=== PATIENT | female | born 1970 | race Hispanic/Latino ===

== ENCOUNTER 2017-12-08 15:24 | Emergency (ER) | payer OTHER ==
--- NOTE | 2017-12-08 16:35 | RAD ---
Procedure: XR ABDOMEN SUPINE AND ERECT WITH CHEST (ABD ACUTE SERIES) Exam Date: 12/08/2017 Ordering Provider: Chase Wagoner Clinical Indication: epigastric pain, nv constipation Comparison: 05/31/2015 Findings: Upright chest x-ray: Cardiomediastinal silhouette is within normal limits. Pulmonary vasculature is unremarkable. There is no consolidation or effusion. No pneumothorax. Flat and upright abdomen: Nonobstructive bowel gas pattern. There is no pneumoperitoneum. There are no suspicious urinary tract calcifications. No acute osseous abnormalities. Impression: 1. No acute findings. Electronically signed by: Carlton Soliz MD 12/08/2017 4:33 PM CDT
[2017-12-08] MEDS ORDERED: SUCRALFATE 1 GM/10 ML 1 GM UD PO ONE (17:07)
[2017-12-08] MEDS ORDERED: PANTOPRAZOLE SODIUM TAB 40 MG PO ONE (17:07)
[2017-12-08] MEDS ORDERED: ALUM & MAG HYDROX-SIMETHICONE 30 ML, LIDOCAINE VISCOUS 2% 15 ML PO ONE ×2 (17:07)
[2017-12-08] MEDS ORDERED: ONDANSETRON ODT 8 MG TAB SL ONE (17:08)
[2017-12-08] MEDS ORDERED: ALUM & MAG HYDROX-SIMETHICONE 30 ML UD ONE (17:13)
[2017-12-08] MEDS ORDERED: LIDOCAINE HCL 2% (MOUTH-THROAT) 15 ML UD ONE (17:13)
--- NOTE | 2017-12-08 18:17 | ED.PDOC ---
History of Present Illness - General Chief Complaint: GI Problem Stated Complaint: epigastric pain Time Seen by Provider: 12/08/17 15:26 Source: patient Exam Limitations: no limitations - History of Present Illness Initial Comments: The patient is a 47-year-old female presenting to the emergency room secondary to nausea and vomiting since this morning. She has had some epigastric discomfort. No real right upper quadrant pain. She has had some constipation issues. No fever. No blood in the vomitus. No bile in the vomitusvomitus. Timing/Duration: 24 hours Severity: moderate Improving Factors: nothing Worsening Factors: nothing Associated Symptoms: loss of appetite, nausea/vomiting Allergies/Adverse Reactions: Allergies NO KNOWN ALLERGY Allergy (Unverified 06/11/12 22:39) Home Medications: Ambulatory Orders Metronidazole 250 mg PO TID #21 tab 05/31/15 Famotidine 20 mg PO DAILY #90 tab 12/08/17 Ondansetron [Zofran Odt] 4 mg PO Q4H PRN #10 tab 12/08/17 Sucralfate Tab [Carafate Tab] 1 gm PO QID #120 tab 12/08/17 Review of Systems - Review of Systems Constitutional: States: no symptoms reported EENTM: States: no symptoms reported Respiratory: States: no symptoms reported Cardiology: States: no symptoms reported Gastrointestinal/Abdominal: States: abdominal pain, constipation, nausea, vomiting Genitourinary: States: no symptoms reported Musculoskeletal: States: no symptoms reported Skin: States: no symptoms reported Neurological: States: no symptoms reported Endocrine: States: no symptoms reported All other Systems: No Change from Baseline Past Medical History (General) - Patient Medical History Hx Seizures: No Hx Stroke: No Hx Dementia: No Hx Asthma: No Hx of COPD: No Hx Cardiac Disorders: No Hx Congestive Heart Failure: No Hx Pacemaker: No Hx Hypertension: No Hx Thyroid Disease: No Hx Diabetes: No Hx Gastroesophageal Reflux: No Hx Renal Disease: No Hx Cancer: No Hx of HIV: No Hx Hepatitis C: No Hx MRSA: No - Vaccination History Hx Tetanus, Diphtheria Vaccination: Yes Hx Influenza Vaccination: No Hx Pneumococcal Vaccination: No - Social History Hx Tobacco Use: No Hx Chewing Tobacco Use: No Hx Alcohol Use: No Hx Substance Use: No Hx Substance Use Treatment: No Hx Depression: No Hx Physical Abuse: No Hx Emotional Abuse: No Hx Suspected Abuse: No - Female History Hx Last Menstrual Period: 05/20/15 Patient : No Family Medical History - Family History Mother Family History: Unknown Living Status: Still Living Physical Exam - Physical Exam General Appearance: Alert, Comfortable, No apparent distress Eye Exam: bilateral normal Ears, Nose, Throat: hearing grossly normal, normal pharynx Neck: full range of motion, supple Respiratory: lungs clear, normal breath sounds, no respiratory distress, no accessory muscle use Cardiovascular/Chest: normal peripheral pulses, regular rate, rhythm, no edema Peripheral Pulses: radial,right: 2+, radial,left: 2+, dorsalis pedis,right: 2+, dorsalis pedis,left: 2+ Gastrointestinal/Abdominal: soft, other - mild epigastric discomfort palpation. No rebound or peritoneal signs. No obvious palpable masses. Rectal Exam: deferred Back Exam: normal inspection, no CVA tenderness Extremity: normal range of motion, non-tender, normal inspection, no pedal edema , normal capillary refill Neurologic: eye care professional II-XII nml as tested, alert, normal mood/affect, oriented x 3 Skin Exam: normal color Comments: Vital Signs - 8 hr 12/08/17 15:30 Temperature 97.6 F Pulse Rate [ 58 L right brachial] Respiratory 18 Rate Blood Pressure 152/93 [right brachial ] O2 Sat by Pulse 99 Oximetry Progress - Progress Progress: 12/08/17 18:17 the patient a 47-year-old female presenting secondary some nausea and vomiting likely due to acute gastritis. The patient will be written for Zofran , Pepcid and Carafate. She needs to maintain a bland diet. She can also take milk of magnesia once daily for the next 3 days for any constipation. She needs to keep follow-up with her primary care doctor. She needs to keep well hydrated. ER warnings are given for any worsening. - Results/Orders Results/Orders: acute abdominal series shows no acute pathology. No evidence of any obstruction. No free air under the diaphragm. Laboratory Tests 12/08/17 12/08/17 12/08/17 16:31 16:31 16:31 WBC 7.6 RBC 4.65 Hgb 12.2 Hct 37.3 MCV 80.3 L MCH 26.2 L MCHC 32.6 L RDW 17.0 H Plt Count 267 MPV 9.6 Absolute Neuts (auto) 4.70 Absolute Lymphs (auto) 2.20 Absolute Monos (auto) 0.40 Absolute Eos (auto) 0.20 Absolute Basos (auto) 0.10 Neutrophils % 61.5 Lymphocytes % 29.3 Monocytes % 5.3 Eosinophils % 3.2 Basophils % 0.7 Sodium 139 Potassium 3.4 L Chloride 105 Carbon Dioxide 27 Anion Gap 10.4 L BUN 16 Creatinine 0.58 L BUN/Creatinine Ratio 27.6 H Random Glucose 105 Serum Osmolality 279.1 Calcium 9.2 Total Bilirubin 0.4 AST 19 ALT 19 Alkaline Phosphatase 81 Serum Total Protein 7.5 Albumin 4.0 Globulin 3.5 Albumin/Globulin Ratio 1.1 Amylase 39 Lipase 26 Serum HCG, Qual Negative Urine Color Urine Appearance Urine pH Ur Specific [place] Urine Protein Urine Glucose (UA) Urine Ketones Urine Blood Urine Nitrite Urine Bilirubin Urine Urobilinogen Ur Leukocyte Esterase Urine RBC Urine WBC Ur Epithelial Cells Urine Bacteria 12/08/17 Unknown WBC RBC Hgb Hct MCV MCH MCHC RDW Plt Count MPV Absolute Neuts (auto) Absolute Lymphs (auto) Absolute Monos (auto) Absolute Eos (auto) Absolute Basos (auto) Neutrophils % Lymphocytes % Monocytes % Eosinophils % Basophils % Sodium Potassium Chloride Carbon Dioxide Anion Gap BUN Creatinine BUN/Creatinine Ratio Random Glucose Serum Osmolality Calcium Total Bilirubin AST ALT Alkaline Phosphatase Serum Total Protein Albumin Globulin Albumin/Globulin Ratio Amylase Lipase Serum HCG, Qual Urine Color Yellow Urine Appearance Clear Urine pH 7.5 Ur Specific [place] 1.015 Urine Protein Negative Urine Glucose (UA) Negative Urine Ketones Negative Urine Blood Negative Urine Nitrite Negative Urine Bilirubin Negative Urine Urobilinogen 0.2 Ur Leukocyte Esterase Negative Urine RBC 0 Urine WBC 0 Ur Epithelial Cells 1-3 Urine Bacteria 0 Departure - Departure Clinical Impression: Gastritis, acute Qualifiers: Gastritis type: unspecified gastritis Gastritis bleeding: without bleeding Qualified Code(s): K29.00 - Acute gastritis without bleeding Disposition: Discharge to Home or Self Care Condition: Fair Departure Forms: ED Discharge - Pt. Copy, Patient Portal Self Enrollment Instructions: DI for Gastritis Diet: bland diet Activity: increase activity as tolerated Referrals: Shavonne Webb MD [Primary Care Provider] - 1-2 Weeks Prescriptions: Famotidine 20 mg PO DAILY #90 tab Ondansetron [Zofran Odt] 4 mg PO Q4H PRN #10 tab PRN Reason: Vomiting Sucralfate Tab [Carafate Tab] 1 gm PO QID #120 tab Home Medications: Ambulatory Orders Metronidazole 250 mg PO TID #21 tab 05/31/15 Famotidine 20 mg PO DAILY #90 tab 12/08/17 Ondansetron [Zofran Odt] 4 mg PO Q4H PRN #10 tab 12/08/17 Sucralfate Tab [Carafate Tab] 1 gm PO QID #120 tab 12/08/17 Additional Instructions: the patient a 47-year-old female presenting secondary some nausea and vomiting likely due to acute gastritis. The patient will be written for Zofran , Pepcid and Carafate. She needs to maintain a bland diet. She can also take milk of magnesia once daily for the next 3 days for any constipation. She needs to keep follow-up with her primary care doctor. She needs to keep well hydrated. ER warnings are given for any worsening. Print Language: [place]uran
[2017-12-08 18:35] VITALS: BP 147/93; TEMP 98.8; O2SAT 96
== END 2017-12-08 18:34 | disposition home or self-care (01) ==
LOC: ER 15:24
DX: K29.00 Acute gastritis without bleeding (principal)

== ENCOUNTER 2018-04-28 17:46 | Emergency (ER) | payer OTHER ==
[2018-04-28] MEDS ORDERED: SODIUM CHLORIDE 0.9% (FLUSH) 10 ML SYG IV PRN (18:55)
--- NOTE | 2018-04-28 19:25 | RAD ---
EXAM DESCRIPTION: Chest,1 View CLINICAL HISTORY:47 years Female, DIZZINESS/MORENO Comparison: December 14, 2012 FINDINGS: No focal lung consolidation. No pleural effusion. No pneumothorax. Cardiac and mediastinal silhouette is unremarkable. No acute osseous abnormality. Soft tissues are unremarkable. IMPRESSION: No acute findings. No focal lung consolidation. Electronically signed by: Aniceto James MD 04/28/2018 7:22 PM MESSAGE CLERK
[2018-04-28] MEDS ORDERED: METOCLOPRAMIDE HCL INJ 10 MG/2 ML VIAL IV ONE (19:57)
[2018-04-28] MEDS ORDERED: KETOROLAC TROMETHAMINE INJ 30 MG/ML VIAL IV ONE (19:57)
--- NOTE | 2018-04-28 20:21 | ED.PDOC ---
History of Present Illness - General Chief Complaint: Neuro Symptoms/Deficits Stated Complaint: DIZZY, H/A STATES FACE FEELS NUMB Time Seen by Provider: 04/28/18 19:56 Source: patient Exam Limitations: no limitations - History of Present Illness Initial Comments: PT C/O MORENO X 3 DAYS. INITIALLY MILD NOW GLOBAL, WORSE AND ASSOCIATED WITH VOMITING. CAME TO ED FOR EVALUATION. Improving Factors: nothing Worsening Factors: nothing Associated Symptoms: nausea/vomiting Allergies/Adverse Reactions: Allergies NO KNOWN ALLERGY Allergy (Unverified 06/11/12 22:39) Home Medications: Ambulatory Orders Cyclobenzaprine HCl [Flexeril] 10 mg PO TID PRN #15 tab 04/28/18 Duloxetine HCl [Cymbalta] 60 mg PO DAILY 04/28/18 Indomethacin 50 mg PO TID PRN #14 cap 04/28/18 Loratadine [Claritin] 10 mg PO DAILY 04/28/18 Pantoprazole Tablet [Protonix] 40 mg PO DAILY 04/28/18 Review of Systems - Review of Systems Constitutional: States: chills, other - NO HEAD TRAUMA. Denies: weakness EENTM: Denies: eye pain, ear pain, throat pain Respiratory: States: cough. Denies: short of breath Cardiology: Denies: chest pain, palpitations Gastrointestinal/Abdominal: States: nausea, vomiting. Denies: abdominal pain Genitourinary: States: no symptoms reported Musculoskeletal: Denies: back pain, neck pain Skin: States: no symptoms reported Neurological: States: other - C/O NUMBNESS ENTIRE FACE, BOTH HANDS AND BOTH FEET. RUE WEAKNESS, AND L LEG "ITCHING" Endocrine: States: no symptoms reported Hematologic/Lymphatic: States: no symptoms reported Past Medical History (General) - Patient Medical History Hx Seizures: No Hx Stroke: No Hx Dementia: No Hx Asthma: No Hx of COPD: No Hx Cardiac Disorders: No Hx Congestive Heart Failure: No Hx Pacemaker: No Hx Hypertension: No Hx Thyroid Disease: No Hx Diabetes: No Hx Gastroesophageal Reflux: Yes Hx Renal Disease: No Hx Cancer: No Hx of HIV: No Hx Hepatitis C: No Hx MRSA: No Surgical History: no surgical history - Vaccination History Hx Tetanus, Diphtheria Vaccination: Yes Hx Influenza Vaccination: Yes Hx Pneumococcal Vaccination: No Immunizations Up to Date: No - Social History Hx Tobacco Use: No Hx Chewing Tobacco Use: No Hx Alcohol Use: No Hx Substance Use: No Hx Substance Use Treatment: No Hx Depression: No Hx Physical Abuse: No Hx Emotional Abuse: No Hx Suspected Abuse: No - Female History Patient is a Female of Child Bearing Age (10 -59 yrs old): Yes Hx Last Menstrual Period: 05/20/15 Patient : No Family Medical History - Family History Mother Family History: Unknown Living Status: Still Living Physical Exam - Physical Exam General Appearance: Alert, No apparent distress, Obese Eye Exam: bilateral normal Ears, Nose, Throat: hearing grossly normal, normal ENT inspection, normal pharynx, other - TM'S NL. Neck: full range of motion, supple Respiratory: lungs clear, normal breath sounds Cardiovascular/Chest: regular rate, rhythm, no murmur Gastrointestinal/Abdominal: non tender, soft, no organomegaly Back Exam: normal inspection, no CVA tenderness Extremity: normal range of motion, non-tender, normal inspection Neurologic: no motor/sensory deficits, alert, normal mood/affect, oriented x 3 Skin Exam: normal color, warm/dry Lymphatic: no adenopathy Progress - Progress Progress: 04/28/18 21:47 FEELS MUCH BETTER, JUST A SMALL AMOUNT OF RESIDUAL OCCIPITAL MORENO. WILL SCAN. 04/28/18 23:04 CT HEAD UNREMARKABLE PER RADIOLOGY Departure - Departure Clinical Impression: Cephalalgia Qualifiers: Headache type: tension-type Headache chronicity pattern: acute headache Intractability: not intractable Qualified Code(s): G44.209 - Tension-type headache, unspecified, not intractable ICD-10 Supporting Text: DDX: MIGRAINE VARIANT, ANXIETY Time of Disposition: 23:05 Disposition: Discharge to Home or Self Care Condition: Good Departure Forms: ED Discharge - Pt. Copy, Patient Portal Self Enrollment Instructions: Tension Headache Referrals: Shavonne Webb MD [Primary Care Provider] - 1-2 Weeks Prescriptions: Cyclobenzaprine HCl [Flexeril] 10 mg PO TID PRN #15 tab PRN Reason: Pain Indomethacin 50 mg PO TID PRN #14 cap PRN Reason: Pain Home Medications: Ambulatory Orders Cyclobenzaprine HCl [Flexeril] 10 mg PO TID PRN #15 tab 04/28/18 Duloxetine HCl [Cymbalta] 60 mg PO DAILY 04/28/18 Indomethacin 50 mg PO TID PRN #14 cap 04/28/18 Loratadine [Claritin] 10 mg PO DAILY 04/28/18 Pantoprazole Tablet [Protonix] 40 mg PO DAILY 04/28/18
[2018-04-28 21:25] VITALS: O2SAT 99
--- NOTE | 2018-04-28 22:11 | CT ---
EXAM DESCRIPTION: Head CLINICAL HISTORY:47 years Female, abdominal pain with nausea, vomiting, chest pain Comparison: August 27, 2016 TECHNIQUE: Contiguous axial images of the abdomen and pelvis were obtained followed by reconstruction images. This exam was performed according to our departmental dose-optimization program, which includes automated exposure control, adjustment of the mA and/or kV according to patient size and/or use of iterative reconstruction technique. FINDINGS: Lung bases: Lung bases are clear. Heart: Visualized heart is within normal limits in size. Liver:Unremarkable. No focal liver lesion. Gallbladder:Cholecystectomy clips seen in gallbladder fossa. Spleen:Unremarkable Pancreas: Pancreas is unremarkable. Adrenal glands:Within normal limits. Kidneys/ureters: Left renal cyst measuring up to 3.2 cm. Right renal lower pole cyst measuring 1.2 cm. No hydronephrosis. No ureteral calculus. Bladder:Unremarkable. Pelvic organs: Hysterectomy. No pelvic mass lesion Vascular structures: within normal limits Peritoneum: No free fluid. Lymph nodes: No abnormal lymph nodes. Stomach/small bowel/colon: Stomach is unremarkable. Small bowel is unremarkable. Colon is unremarkable. Appendix: Appendix is seen and is within normal limits. Bones: No acute osseous abnormality. Soft tissues: Unremarkable.. IMPRESSION: No acute intra-abdominal abnormality. Electronically signed by: Aniceto James MD 04/28/2018 10:08 PM POURER OFF
[2018-04-28 23:29] VITALS: BP 130/96; TEMP 98
== END 2018-04-28 23:29 | disposition home or self-care (01) ==
LOC: ER 17:46
DX: G44.209 Tension-type headache, unspecified, not intractable (principal); R11.2 Nausea with vomiting, unspecified; R42 Dizziness and giddiness; R20.0 Anesthesia of skin; K21.9 Gastro-esophageal reflux disease without esophagitis
CPT/HCPCS: 36415; 70450; 71045; 80048; 82550; 82553; 83880; 84484; 85025; 85610; 85730; 87502; 93005; 94760; J1885; J2765